=== PATIENT | male | born 1935 | race Caucasian/White ===

== ENCOUNTER 2022-09-09 11:42 | Emergency (ER) | payer MEDICARE ==
[~2022-09-09] VITALS: Ht 175.3 cm; Wt 74.8 kg
[2022-09-09] MEDS ORDERED: METFORMIN HCL1000 MG PO (12:09)
[2022-09-09] MEDS ORDERED: ELIQUIS2.5 MG PO (12:09)
[2022-09-09] MEDS ORDERED: METOPROLOL SUCC25 MG PO (12:10)
[2022-09-09] MEDS ORDERED: ZITHROMAX250 MG PO (13:18)
--- NOTE | 2022-09-09 21:35 | EKG ---
[facility] [address] [facility] [place] [address] Signed Ventricular-paced rhythm Abnormal ECG No previous ECGs available Confirmed by Ana Suarez MD () on 09/09/2022 9:35:31 PM Electronically Signed By: ANA SUAREZ MD 09/09/22 2135 PATIENT NAME: NENA MCFARLAND Electrocardiogram DATE OF : 37 PHYSICIAN: ANA SUAREZ MD REPORT #: [id number] REPORT IS CONFIDENTIAL AND NOT TO BE RELEASED WITHOUT AUTHORIZATION
== END 2022-09-09 13:42 | disposition home or self-care (01) ==
LOC: ED 11:42
DX: J02.9 Acute pharyngitis, unspecified (principal); Z20.822 Contact with and (suspected) exposure to COVID-19
CPT/HCPCS: 36415; 71045; 80048; 84484; 85025; 87502; 87880; 93005; 93010; 99285-25; C9803; U0003